=== PATIENT | male | born 1990 | race Caucasian/White ===

== ENCOUNTER 2017-05-05 19:04 | Emergency (ER) | payer OTHER ==
[~2017-05-05] VITALS: Ht 167.6 cm; Wt 72.6 kg
[2017-05-05] MEDS ORDERED: IBUPROFEN 200200 M1 PO (19:27)
[2017-05-05] MEDS ORDERED: MEDROLDOSEPACK PO (20:15)
[2017-05-05 20:21] VITALS: BP 121/79
== END 2017-05-05 20:21 | disposition home or self-care (01) ==
LOC: ER 19:04
DX: L50.8 Other urticaria (principal); F10.99 Alcohol use, unspecified with unspecified alcohol-induced disorder